=== PATIENT | female | born 1960 | race Caucasian/White ===

== ENCOUNTER 2018-10-30 17:59 | Emergency (ER) | payer OTHER, BC ==
--- NOTE | 2018-10-30 18:17 | EDM.PDOC ---
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 She did not hear or feel a noise, nor has she witnessed any swelling or deformity of the forefoot that is painful. She is walking with a limp, however. She has taken no meds. left foot Pain Score (Numeric/FACES): 10 - Related Data Allergies Allergy/AdvReac Type Severity Reaction Status Date / Time No Known Allergies Allergy Verified 10/30/18 18:11 Home Meds: Home Meds Cephalexin [Keflex] 500 mg PO TID #30 capsule 07/03/18 [Rx] Hydrochlorothiazide [Microzide] 12.5 mg PO DAILY #30 capsule 07/03/18 [Rx] Lurasidone HCl [Latuda] 30 mg PO BEDTIME 07/03/18 [History] Metoprolol Tartrate 50 mg BID 07/03/18 [History] Multivitamin [Multivitamins] 1 tab DAILY 07/03/18 [History] Phentermine HCl 15 mg PO DAILY 07/03/18 [History] traZODone 50 - 100 mg PO BEDTIME 07/03/18 [History] Past Medical History Cardiovascular History: Reports: Hypertension 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: Musculoskeletal History: Reports: Fracture Other Musculoskeletal History: hx fx ribs R, Psychiatric History: Reports: Addiction, Anxiety, Dementia, Panic Attack, Psych Hospitalization(s), Suicide Attempt - Infectious Disease History Infectious Disease History: Reports: Chicken Pox, MRSA - Past Surgical History Musculoskeletal Surgical History: Reports: ORIF, Shoulder Surgery Other Musculoskeletal Surgeries/Procedures:: bilat shoulders replaced, R ankle Social & Family History - Family History Family Medical History: Noncontributory - Caffeine Use Caffeine Use: Reports: Soda Review of Systems - Review of Systems Review Of Systems: ROS reveals no pertinent complaints other than HPI. ED EXAM, GENERAL - Physical Exam Exam: See Below Exam Limited By: No Limitations General Appearance: Alert, WD/WN, Mild Distress Head: Normocephalic Neck: Normal Inspection, Supple Respiratory/Chest: Lungs Clear Cardiovascular: Regular Rate, Rhythm Back Exam: Normal Inspection Extremities: Other (L foot: no deformity of forefoot, midfoot or hindfoot; tenderness overly proximal midfoot in region of deltoid ligament; no swelling, no ecchymoses; CMS intact) Neurological: Alert, Oriented, CN II-XII Intact, Normal Cognition, No Motor/ Sensory Deficits Psychiatric: Normal Affect, Normal Mood Skin Exam: Warm, Dry, Intact, Normal Color, No Rash Lymphatic: No Adenopathy Course - Vital Signs Text/Narrative:: Following assessment, I administered Ibuprofen 600 mg po pending results of x rays: neg for fx. Last Recorded V/S: Last Vital Signs Temp 36.6 C 10/30/18 17:59 Pulse 71 10/30/18 17:59 Resp 18 10/30/18 17:59 BP 196/113 H 10/30/18 17:59 Pulse Ox 100 10/30/18 17:59 - Orders/Labs/Meds Orders: Active Orders 24 hr Category Date Time Status Foot Comp Min 3V Lt [CR] Stat Exams 10/30/18 18:14 Taken Meds: Medications Discontinued Medications Generic Name Dose Route Start Last Admin Trade Name Freq PRN Reason Stop Dose Admin Ibuprofen 600 mg 10/30/18 18:18 10/30/18 18:23 Motrin PO 10/30/18 18:19 600 mg ONETIME ONE Administration Departure - Departure Time of Disposition: 19:00 Disposition: Home, Self-Care 01 Condition: Fair Clinical Impression: Sprain of left foot Qualifiers: Encounter type: initial encounter Qualified Code(s): S93.602A - Unspecified sprain of left foot, initial encounter - Discharge Information *PRESCRIPTION DRUG MONITORING PROGRAM REVIEWED*: Not Applicable *COPY OF PRESCRIPTION DRUG MONITORING REPORT IN PATIENT ARIEL: Not Applicable Instructions: Foot Sprain Referrals: Benito Ruiz MD [Primary Care Provider] - Forms: ED Department Discharge Additional Instructions: May take Tylenol 1000 mg and Ibuprofen 650mg every 6 hours as needed for pain and discomfort. apply Splint as needed. No stairs or ladders for about a week. Follow up with your primary care provider as needed. - Problem List & Annotations (1) Sprain of left foot SNOMED Code(s): 56877432 Code(s): S93.602A - UNSPECIFIED SPRAIN OF LEFT FOOT, INITIAL ENCOUNTER Status: Acute Current Visit: Yes Annotation/Comment:: Yasmin was giving restrictions for the next week, advised NSAIDs for pain, RICE, and will be wearing a CAM Boot for comfort. Qualifiers: Encounter type: initial encounter Qualified Code(s): S93.602A - Unspecified sprain of left foot, initial encounter - Problem List Review Problem List Initiated/Reviewed/Updated: Yes - My Orders Last 24 Hours: My Active Orders 10/30/18 18:14 Foot Comp Min 3V Lt [CR] Stat - Assessment/Plan Last 24 Hours: My Active Orders 10/30/18 18:14 Foot Comp Min 3V Lt [CR] Stat Plan: Follow up with PCP if needed.
[2018-10-30] MEDS: Ibuprofen 600 MG Tab PO ONE (18:23)
--- NOTE | 2018-10-31 11:19 | CR ---
INDICATION: Twisted left forefoot, Workers Compensation. LEFT FOOT: Three views of the left foot were obtained 10/30/18 - no comparisons. A fracture, dislocation, or other acute bone or joint abnormality was not identified. A very tiny plantar calcaneal spur is noted. MTDD
== END 2018-10-30 19:10 | disposition home or self-care (01) ==
LOC: FB.ED 17:59
DX: S93.602A Unspecified sprain of left foot, initial encounter (principal); I10 Essential (primary) hypertension; Z79.899 Other long term (current) drug therapy; X50.1XXA Overexertion from prolonged static or awkward postures, initial encounter
CPT/HCPCS: 73630; 99283; A9270

== ENCOUNTER 2020-09-28 17:58 | Emergency (ER) | payer BC, OTHER ==
[2020-09-28] MEDS: Cephalexin 500 MG Cap PO STA (19:29)
[2020-09-28] MEDS: hydrALAZINE 20 MG/ML SDV IVPUSH STA (19:29)
--- NOTE | 2020-09-28 20:37 | EDM.PDOC ---
ED HPI GENERAL MEDICAL PROBLEM - General Chief Complaint: Cardiovascular Problem Stated Complaint: HEADACHE HIGH BP Time Seen by Provider: 09/28/20 19:30 Source of Information: Reports: Patient History Limitations: Reports: No Limitations - History of Present Illness INITIAL COMMENTS - FREE TEXT/NARRATIVE: Patient presented to the ED because of an elevated BP. She quit taking her BP meds month ago. Denies having any headache,chest,dyspnea. She also c/o swelling, redness, pain on the left ear where she had multiple ear piercing. - Related Data Allergies Allergy/AdvReac Type Severity Reaction Status Date / Time No Known Allergies Allergy Verified 10/30/18 18:11 Home Meds: Home Meds Lurasidone HCl [Latuda] 30 mg PO BEDTIME 07/03/18 [History] Metoprolol Tartrate 50 mg BID 07/03/18 [History] Multivitamin [Multivitamins] 1 tab DAILY 07/03/18 [History] Phentermine HCl 15 mg PO DAILY 07/03/18 [History] cephALEXin [Keflex] 500 mg PO TID #30 capsule 07/03/18 [Rx] hydroCHLOROthiazide [Microzide] 12.5 mg PO DAILY #30 capsule 07/03/18 [Rx] traZODone 50 - 100 mg PO BEDTIME 07/03/18 [History] Potassium Chloride [Klor-Con M20] 40 meq PO TID #12 tab.er 09/28/20 [Rx] cephALEXin [Keflex] 500 mg PO Q8H #30 cap 09/28/20 [Rx] Past Medical History Cardiovascular History: Reports: Hypertension 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: Musculoskeletal History: Reports: Fracture Other Musculoskeletal History: hx fx ribs R, Psychiatric History: Reports: Addiction, Anxiety, Dementia, Panic Attack, Psych Hospitalization(s), Suicide Attempt - Infectious Disease History Infectious Disease History: Reports: Chicken Pox, MRSA - Past Surgical History Musculoskeletal Surgical History: Reports: ORIF, Shoulder Surgery Other Musculoskeletal Surgeries/Procedures:: bilat shoulders replaced, R ankle Social & Family History - Family History Family Medical History: No Pertinent Family History - Caffeine Use Caffeine Use: Reports: Soda ED ROS GENERAL - Review of Systems Review Of Systems: See Below Constitutional: Reports: No Symptoms HEENT: Reports: No Symptoms Respiratory: Reports: No Symptoms Cardiovascular: Reports: Blood Pressure Problem Endocrine: Reports: No Symptoms GI/Abdominal: Reports: No Symptoms : Reports: No Symptoms Musculoskeletal: Reports: No Symptoms Skin: Reports: Erythema Neurological: Reports: No Symptoms Psychiatric: Reports: No Symptoms ED EXAM, GENERAL - Physical Exam Exam: See Below Exam Limited By: No Limitations General Appearance: Alert, No Apparent Distress Eye Exam: Bilateral Eye: PERRL Ears: Normal External Exam, Normal Canal, Hearing Grossly Normal Nose: Normal Inspection, Normal Mucosa, No Blood Throat/Mouth: Normal Inspection, Normal Lips, Normal Teeth Head: Atraumatic, Normocephalic Neck: Normal Inspection, Supple, Non-Tender, Full Range of Motion Respiratory/Chest: No Respiratory Distress, Lungs Clear, Normal Breath Sounds, No Accessory Muscle Use Cardiovascular: Normal Peripheral Pulses, Regular Rate, Rhythm, No Edema, No Gallop GI/Abdominal: Normal Bowel Sounds, Soft, Non-Tender, No Organomegaly Back Exam: Normal Inspection, Full Range of Motion Course - Vital Signs Text/Narrative:: Lab result was discussed with patient Hydralazine 20 mg IV x1 Klorcon 20 meq, 2 po x1 keflex 500 mg po x1 - Orders/Labs/Meds Labs: Laboratory Tests 09/28/20 09/28/20 09/28/20 Range/Units 19:55 19:55 19:55 WBC 9.1 (3.0-10.3) x10-3/uL RBC 4.91 (3.60-5.20) x10(6)uL Hgb 13.7 (11.4-15.5) g/dL Hct 41.8 (34.2-48.2) % MCV 85.1 (76.7-100.5) fL MCH 28.0 (23.9-33.9) pg MCHC 32.9 (31.9-34.8) g/dL RDW 13.1 (12.3-16.5) % Plt Count 276 (151-488) x10(3)uL MPV 7.9 (7.1-12.4) fL Neut % (Auto) 54.1 (30.8-76.2) % Lymph % (Auto) 35.2 (18.4-52.1) % [place] % (Auto) 7.1 (4.4-15.7) % Eos % (Auto) 2.5 (0.6-8.1) % Baso % (Auto) 1.1 (0.2-1.5) % Neut # (Auto) 4.9 (1.5-6.3) x10-3/uL Lymph # (Auto) 3.2 (1.0-4.4) x10-3/uL [place] # (Auto) 0.6 (0.3-1.0) x10-3/uL Eos # (Auto) 0.2 (0.0-0.8) x10-3/uL Baso # (Auto) 0.1 (0.0-0.1) x10-3/uL Sodium 140 (135-145) mmol/L Potassium 3.0 L (3.5-5.3) mmol/L Chloride 101 (100-110) mmol/L Carbon Dioxide 28 (21-32) mmol/L BUN 17 (7-18) mg/dL Creatinine 0.7 (0.55-1.02) mg/dL Est Cr Clr Drug Dosing TNP Estimated GFR (MDRD) > 60 (>60) BUN/Creatinine Ratio 24.3 H (9-20) Glucose 95 (80-116) mg/dL Calcium 8.9 (8.6-10.2) mg/dL Total Bilirubin 0.4 (0.1-1.3) mg/dL AST 22 (5-25) IU/L ALT 28 (12-36) U/L Alkaline Phosphatase 86 (56-112) IU/L Troponin I 10.0 (4.0-60.3) pg/mL Total Protein 7.6 (6.0-8.0) g/dL Albumin 4.2 (3.5-5.2) g/dL Globulin 3.4 g/dL Albumin/Globulin Ratio 1.2 Meds: Medications Discontinued Medications Generic Name Dose Route Start Last Admin Trade Name Freq PRN Reason Stop Dose Admin Cephalexin 500 mg 09/28/20 19:20 09/28/20 19:29 Keflex PO 09/28/20 19:21 500 mg NOW STA Administration Hydralazine HCl 20 mg 09/28/20 19:20 09/28/20 19:29 Apresoline IVPUSH 09/28/20 19:21 20 mg NOW STA Administration Potassium Chloride 40 meq 09/28/20 20:30 09/28/20 20:43 Klor-Con M20 PO 09/28/20 20:31 40 meq NOW STA Administration Departure - Departure Time of Disposition: 20:35 Disposition: Home, Self-Care 01 Condition: Good Clinical Impression: HTN (hypertension), Cellulitis and abscess of buttock, Hypokalemia Prescriptions: cephALEXin [Keflex] 500 mg PO Q8H #30 cap Potassium Chloride [Klor-Con M20] 40 meq PO TID #12 tab.er Instructions: Cellulitis, Adult, [id number], Hypertension, Adult, [id number] Referrals: Benito Ruiz MD [Primary Care Provider] - Forms: ED Department Discharge Additional Instructions: Please read discharge instructions on high blood pressure and cellulitis(soft tissue and skin infection) Start taking your BP medicine daily in the morning. Never quit taking your medicine. Klor con 20 meq, take 2 tablets 3 times daily for 2 days Keflex 500 mg 3 times daily for 10 days(take it with with food because it can cause an upset stomach) Follow up as needed
[2020-09-28] MEDS: Potassium Chloride 20 MEQ Tab.ER PO STA (20:43)
== END 2020-09-28 20:50 | disposition home or self-care (01) ==
LOC: FB.ED 17:58
DX: I10 Essential (primary) hypertension (principal); L03.317 Cellulitis of buttock; L02.31 Cutaneous abscess of buttock; E87.6 Hypokalemia; Z79.899 Other long term (current) drug therapy
CPT/HCPCS: 36415; 80053; 84484; 85025; 93005; 96374; 99283-25; 99284; A9270-GY; J0360

== ENCOUNTER 2023-08-09 08:19 | Day surgery (SDC) | payer BC ==
[2023-08-09] MEDS ORDERED: Propofol 200 MG/20 ML SDV IV ONE (08:20)
[2023-08-09] MEDS ORDERED: Midazolam 1 MG/ML 2 ML SDV IV ONE (08:20)
[2023-08-09] MEDS ORDERED: fentaNYL 100 MCG/2 ML SDV IV ONE (08:20)
[2023-08-09] MEDS ORDERED: Lactated Ringers 1,000 ML IV SCH (08:30)
[2023-08-09] MEDS ORDERED: Sodium Chloride 0.9% 10 ML Syringe FLUSH PRN (08:30)
[2023-08-12 01:21] LABS: LACTOFERRIN,FECAL BY ELISA Negative
[2023-08-12 14:30] LABS: ADENOVIRUS 40/41 PCR Not Detected; ASTROVIRUS PCR Not Detected; CAMPYLOBACTER PCR Not Detected; CRYPTOSPORIDIUM PCR Not Detected; CYCLOSPORA CAYETANENSIS PCR Not Detected; ENTAMOEBA HISTOLYTICA PCR Not Detected; ENTEROAGGREGATIVE E. COLI PCR Not Detected; ENTEROPATHOGENIC E. COLI PCR Not Detected; ENTEROTOXIGENIC E. COLI PCR Not Detected; GIARDIA LAMBLIA PCR Not Detected; NOROVIRUS GI/GII PCR Not Detected; PLESIOMONAS SHIGELLOIDES PCR Not Detected; ROTAVIRUS A PCR Not Detected; SALMONELLA PCR Not Detected; SAPOVIRUS PCR Not Detected; SHIG/ENTEROINVASIVE E COLI PCR Not Detected; SHIGA TOXIN-PRODUC E. COLI PCR Not Detected; VIBRIO CHOLERAE PCR Not Detected; VIBRIO PCR Not Detected; YERSINIA ENTEROCOLITICA PCR Not Detected
== END 2023-08-09 12:25 | disposition home or self-care (01) ==
LOC: FB.SDS 08:19
PROVIDERS: ATTEND Surgery
DX: D12.6 Benign neoplasm of colon, unspecified (principal); K52.9 Noninfective gastroenteritis and colitis, unspecified; K62.89 Other specified diseases of anus and rectum; I10 Essential (primary) hypertension; F41.9 Anxiety disorder, unspecified; F31.9 Bipolar disorder, unspecified; Z79.899 Other long term (current) drug therapy
CPT/HCPCS: 00811; 83630; 87507; 88305; J2250; J2704; J3010; J7120